=== PATIENT | female | born 1980 | race Caucasian/White ===

== ENCOUNTER 2021-04-16 23:23 | Emergency (ER) | payer OTHER ==
[~2021-04-16 23:23] MED LIST: IMITREX50 MG PO; PROMETHAZINE-D473 M1 PO; SUDAFED30 MG PO; ZYRTEC10 M3 PO
[2021-04-17 00:06] LABS: BASOPHIL 0.2 % (0-2); EOSINOPHIL 1.2 % (0-5); HGB 12.7 g/dl (12.5-16.0); LYMPHOCYTE 35.7 % (15-48); MCH 30.6 pg (25.0-31.0); MCHC 34.3 g/dL (32.0-36.0); MCV 89.2 fL (78.0-100.0); MONOCYTE 8.1 % (0-12); MPV 9.5 fL (6.0-9.5); NEUTROPHIL 54.7 % (41-80); NRBC 0; PLT 269 K/uL (150-400); RBC 4.15 M/uL (4.20-5.40); RDW 12.3 % (11.5-14.0); WBC 8.2 K/uL (4.0-10.5)
[2021-04-17 00:44] LABS: CORONAVIRUS 2019 SARS-COV-2 NEGATIVE (NEGATIVE); INFLUENZA A NAA NEGATIVE (NEGATIVE)
[2021-04-17 01:08] LABS: ALBUMIN 3.8 g/dL (3.4-5.0); BILIRUBIN - TOTAL 0.2 mg/dL (0.2-1.0); CREATININE 0.71 mg/dL (0.51-0.95); GLOBULIN (CALCULATION) 3.5 g/dL; POTASSIUM 3.7 mmol/L (3.5-5.1); TOTAL PROTEIN 7.3 g/dL (6.4-8.2)
== END 2021-04-17 05:49 | disposition home or self-care (01) ==
LOC: FER 23:23
PROVIDERS: Emergency Medicine Emergency Medical Services
DX: R07.89 Other chest pain (principal); Z20.822 Contact with and (suspected) exposure to COVID-19
CPT/HCPCS: 36415; 71250; 80053; 83690; 83880; 84484; 85025; 85379; 93005; J1885; U0002

== ENCOUNTER 2021-08-06 02:03 | Emergency (ER) | payer OTHER ==
[2021-08-06 02:20] LABS: BASOPHIL 0.3 % (0-2); EOSINOPHIL 1.5 % (0-5); HCT 38.5 % (37.0-47.0); LYMPHOCYTE 29.7 % (15-48); MCH 29.3 pg (25.0-31.0); MCHC 33.8 g/dL (32.0-36.0); MCV 86.7 fL (78.0-100.0); MONOCYTE 8.9 % (0-12); MPV 9.3 fL (6.0-9.5); NEUTROPHIL 59.2 % (41-80); NRBC 0; PLT 273 K/uL (150-400); RBC 4.44 M/uL (4.20-5.40); RDW 12.5 % (11.5-14.0); WBC 9.9 K/uL (4.0-10.5)
[2021-08-06 02:42] LABS: ALBUMIN 3.8 g/dL (3.4-5.0); BILIRUBIN - TOTAL 0.2 mg/dL (0.2-1.0); BUN/CREAT RATIO (CALC) 21.9 RATIO; CREATININE 0.73 mg/dL (0.51-0.95); GLOBULIN (CALCULATION) 3.8 g/dL; POTASSIUM 3.7 mmol/L (3.5-5.1); TOTAL PROTEIN 7.6 g/dL (6.4-8.2)
== END 2021-08-06 03:20 | disposition home or self-care (01) ==
LOC: FER 02:03
PROVIDERS: Internal Medicine
DX: K21.9 Gastro-esophageal reflux disease without esophagitis (principal); R07.89 Other chest pain; Z28.310 Unvaccinated for COVID-19
CPT/HCPCS: 36415; 71045; 80053; 84484; 85025; 93005

== ENCOUNTER 2021-08-24 23:11 | Emergency (ER) | payer OTHER | END 2021-08-25 00:08 | disposition left against medical advice (07) | LOC: FER 23:11 | DX: R07.89 Other chest pain (principal); R35.0 Frequency of micturition; R05.9 Cough, unspecified; Z53.29 Procedure and treatment not carried out because of patient's decision for other reasons; Z88.8 Allergy status to other drugs, medicaments and biological substances | CPT/HCPCS: 71045; 93005 ==